=== PATIENT | male | born 1995 ===

== ENCOUNTER 2018-07-12 19:37 | Emergency (ER) | payer SELFPAY ==
[2018-07-12] MEDS ORDERED: ALBUTEROL/IPRATROPIUM 1 VIAL SOL ONE (19:39)
[2018-07-12] MEDS ORDERED: ALBUTEROL/IPRATROPIUM 1 VIAL SOL INH ONE (19:47)
[2018-07-12 19:57] VITALS: TEMP 97.9
[2018-07-12] MEDS ORDERED: PREDNISONE 20 MG TAB PO ONE (19:57)
[2018-07-12] MEDS ORDERED: PREDNISONE 20 MG TAB ONE (20:00)
[2018-07-12] MEDS ORDERED: ALBUTEROL NEB SOL 2.5MG/3ML 1 VIAL SOL NEB ONE (20:20)
[2018-07-12] MEDS ORDERED: ALBUTEROL NEB SOL 2.5MG/3ML 1 VIAL SOL ONE (20:22)
[2018-07-12 20:33] VITALS: RESP 20
[2018-07-12 21:06] VITALS: BP 143/76; PULSE 83; O2SAT 97
== END 2018-07-12 20:54 | disposition home or self-care (01) | DRG 203 ==
LOC: ED 19:37
DX: J45.901 Unspecified asthma with (acute) exacerbation (principal); R06.02 Shortness of breath
CPT/HCPCS: 71046; 93005; 99284; 99291; J7613; A9270-GY